=== PATIENT | female | born 1955 | race Caucasian/White ===

== ENCOUNTER 2017-06-02 09:14 | Emergency (ER) | payer BC ==
[2017-06-02 12:11] VITALS: BP 126/79
--- NOTE | 2017-06-02 12:47 | UC ---
FLU HPI - HPI Summary HPI Summary: Pt c/o sudden onset of nasa congestion, cough, sinus pressure and pain, fever, chills X 2 days. Pt hada prescription fo rz-pac an dtamiflu previously prescribed by PCP and began z-pac yesterday. NO improvement. - History of Current Complaint Chief Complaint: UCGeneralIllness Stated Complaint: FLU SYMPTOMS/FEVER Time Seen by Provider: 06/02/17 12:14 Hx Obtained From: Patient ?: No Onset/Duration: Sudden Onset Severity Currently: Mild Severity Initially: Mild Pain Intensity: 6 Associated Signs & Symptoms: Positive: Fever, Myalgia, Cough, Nasal Congestion, Headache Related Hx: Possible Flu/Infectious Exposure - Allergy/Home Medications Allergies/Adverse Reactions: Allergies Allergy/AdvReac Type Severity Reaction Status Date / Time ciprofloxacin Allergy Swelling Verified 06/02/17 12:06 Of Face,Lips,& Throat Penicillins Allergy Unknown Verified 06/02/17 12:06 Reaction Details Home Medications: Home Medications Azithromycin TAB* [Zithromax TAB (Z-LAYNE) 250 mg #6 tabs] 250 mg PO DAILY [History Confirmed 06/02/17] Cholecalciferol TAB* [Vitamin D TAB*] 50,000 unit PO WEEKLY 06/02/17 [History Confirmed 06/02/17] Levothyroxine TAB* [Synthroid 88 MCG TAB*] 88 mcg PO 0800 06/02/17 [History Confirmed 06/02/17] Pravastatin Sodium [Pravachol] 20 mg PO DAILY 06/02/17 [History Confirmed ] Probiotic Product [Align] 4 mg PO DAILY 06/02/17 [History Confirmed 06/02/17] PMH/Surg Hx/FS Hx/Imm Hx Previously Healthy: Yes - Surgical History Surgical History: Yes Surgery Procedure, Year, and Place: lumpectomy Right. right knee menisus repair - Family History Known Family History: Positive: Cardiac Disease - Social History Occupation: Retired Alcohol Use: Rare Substance Use Type: None Smoking Status (MU): Never Smoked Tobacco Have You Smoked in the Last Year: No Review of Systems Constitutional: Fever, Chills, Fatigue Skin: Negative Eyes: Negative ENT: Sinus Congestion Respiratory: Cough Cardiovascular: Negative Gastrointestinal: Negative Genitourinary: Negative Motor: Negative Neurovascular: Negative Musculoskeletal: Myalgia Neurological: Headache Psychological: Negative Is Patient Immunocompromised?: No All Other Systems Reviewed And Are Negative: Yes Physical Exam Triage Information Reviewed: Yes Appearance: Ill-Appearing Vital Signs: Initial Vital Signs Temp 99.7 F 06/02/17 12:02 Pulse 101 06/02/17 12:02 Resp 16 06/02/17 12:02 BP 126/79 06/02/17 12:02 Pulse Ox 99 06/02/17 12:02 Vital Signs Reviewed: Yes Eye Exam: Normal ENT Exam: Other ENT: Positive: Nasal congestion Neck exam: Normal Respiratory Exam: Normal Cardiovascular Exam: Normal Musculoskeletal Exam: Normal Neurological Exam: Normal Psychological Exam: Normal Skin Exam: Normal Flu Course/Dx - Differential Dx/Diagnosis Differential Diagnosis/HQI/PQRI: Bronchitis, Influenza, Other - sinusitis Provider Diagnoses: Bronchitis Discharge - Discharge Plan Condition: Stable Disposition: HOME Prescriptions: Benzonatate CAP* [Tessalon 100 MG CAP*] 100 mg PO Q8H PRN #30 cap PRN Reason: Cough predniSONE TAB* [Deltasone TAB*] 30 mg PO DAILY #12 tab Patient Education Materials: Acute Bronchitis (ED) Referrals: No Primary Care Phys,NOPCP [Primary Care Provider] - If Needed Additional Instructions: Please follow up with your PCP or return to clinic as needed.
== END 2017-06-02 13:04 | disposition home or self-care (01) ==
LOC: UCCORT 09:14
DX: J40 Bronchitis, not specified as acute or chronic (principal)
CPT/HCPCS: 87502; 99202; G0463

== ENCOUNTER 2018-08-26 13:24 | Emergency (ER) | payer BC ==
[2018-08-26 13:59] VITALS: BP 152/86
--- NOTE | 2018-08-26 15:07 | UC ---
Skin Complaint HPI - HPI Summary HPI Summary: Pt c/o pain and swelling at previous laceration site. Pt states that she sustained a laceration to right thumb ~ 1 week ago. Had laceration steri stripped and dressing applied with instructions to not remove dressing or wash area fo r5 days. pt states wound now has bad odor and is more tender to touch. - History of Current Complaint Chief Complaint: UCGeneralIllness Time Seen by Provider: 08/26/18 14:16 Stated Complaint: RIGHT THUMB WOUND Hx Obtained From: Patient ?: No Onset/Duration: Gradual Onset, Lasting Days, Still Present Skin Exposure Onset/Duration: Days Ago Timing: Constant Onset Severity: Moderate Current Severity: Mild Pain Intensity: 3 Pain Scale Used: 0-10 Numeric Location: Discrete Character: Pain, Redness, Painful Aggravating Factor(s): Touch Alleviating Factor(s): Nothing Associated Signs & Symptoms: Positive: Tenderness Related History: Other: - recent laceration repaired by steri strips. - Allergy/Home Medications Allergies/Adverse Reactions: Allergies Allergy/AdvReac Type Severity Reaction Status Date / Time ciprofloxacin Allergy Swelling Verified 08/26/18 13:46 Of Face,Lips,& Throat Penicillins Allergy Unknown Verified 08/26/18 13:46 Reaction Details Home Medications: Home Medications Ranitidine TAB (NF) [Zantac TAB (NF)] 1 tab BID 08/26/18 [History Confirmed ] PMH/Surg Hx/FS Hx/Imm Hx Previously Healthy: Yes Endocrine History: Thyroid Disease, Dyslipidemia - Surgical History Surgical History: Yes Surgery Procedure, Year, and Place: lumpectomy Right. right knee meniscus repair. LEFT knee meniscus repair - Family History Known Family History: Positive: Cardiac Disease - Social History Occupation: Retired Lives: With Family Alcohol Use: Rare Substance Use Type: None Smoking Status (MU): Never Smoked Tobacco Have You Smoked in the Last Year: No - Immunization History Most Recent Tetanus Shot: UTD Review of Systems All Other Systems Reviewed And Are Negative: Yes Constitutional: Positive: Negative Skin: Positive: Other - healing laceration right thumb Eyes: Positive: Negative ENT: Positive: Negative Respiratory: Positive: Negative Cardiovascular: Positive: Negative Gastrointestinal: Positive: Negative Genitourinary: Positive: Negative Motor: Positive: Negative Neurovascular: Positive: Negative Musculoskeletal: Positive: Myalgia Neurological: Positive: Negative Psychological: Positive: Negative Is Patient Immunocompromised?: No Physical Exam Triage Information Reviewed: Yes Appearance: Well-Appearing Vital Signs: Initial Vital Signs Temp 98.2 F 08/26/18 13:47 Pulse 72 08/26/18 13:47 Resp 16 08/26/18 13:47 BP 152/86 08/26/18 13:47 Pulse Ox 100 08/26/18 13:47 Vital Signs Reviewed: Yes Eye Exam: Normal ENT: Positive: Hearing grossly normal Dental Exam: Normal Neck exam: Normal Respiratory: Positive: No respiratory distress Musculoskeletal Exam: Normal Musculoskeletal: Positive: Strength Intact, ROM Intact Neurological Exam: Normal Psychological Exam: Normal Skin Exam: Other - right thumb laceration, mild tenderness at laceration site, no purulent discharge, mild erythema at site. mild swelling Course/Dx - Differential Diagnoses - Skin Complaint Differential Diagnoses: Cellulitis - Diagnoses Provider Diagnosis: Healing laceration, Wound infection Discharge - Sign-Out/Discharge Documenting (check all that apply): Patient Departure All imaging exams completed and their final reports reviewed: No Studies - Discharge Plan Condition: Stable Disposition: HOME Prescriptions: Sulfamethox/Trimethoprim DS* [Bactrim DS 800/160 TAB*] 1 tab PO Q12H #10 tab Patient Education Materials: Skin Adhesive Care (ED) Referrals: No Primary Care Phys,NOPCP [Primary Care Provider] - [facility]] - If Needed - Billing Disposition and Condition Condition: STABLE Disposition: Home
== END 2018-08-26 14:56 | disposition home or self-care (01) ==
LOC: UCCORT 13:24
DX: S61.011D Laceration without foreign body of right thumb without damage to nail, subsequent encounter (principal); L08.9 Local infection of the skin and subcutaneous tissue, unspecified; Z88.1 Allergy status to other antibiotic agents; Z88.0 Allergy status to penicillin; X58.XXXD Exposure to other specified factors, subsequent encounter
CPT/HCPCS: 12001; 99212; G0463